=== PATIENT | female | born 1965 | race Caucasian/White ===

== ENCOUNTER 2022-06-29 07:26 | Emergency (ER) | payer OTHER ==
[~2022-06-29] VITALS: Ht 165.1 cm; Wt 105.0 kg
[2022-06-29 07:34] VITALS: BP 159/73
[2022-06-29 07:45] VITALS: BP 138/71
[2022-06-29] MEDS ORDERED: LISINOPRIL2.5 MG PO (07:47)
[2022-06-29] MEDS ORDERED: [UNRECOGNIZED DRUG - OTHER] (07:47)
[2022-06-29] MEDS ORDERED: LANTUS100 UNIT (07:47)
[2022-06-29] MEDS ORDERED: HUMALOG100 UNIT (07:48)
[2022-06-29 08:00] VITALS: BP 179/89
[2022-06-29] MEDS ORDERED: PREDNISONE50 MG PO ×2 (08:07→10:53)
[2022-06-29] MEDS ORDERED: CEPHALEXIN500 M1 PO ×2 (08:07→10:53)
[2022-06-29] MEDS ORDERED: ALL DAY ALLG10 MG PO ×2 (08:07→10:53)
[2022-06-29] MEDS ORDERED: DIFLUCAN150 MG PO ×2 (08:08→10:53)
[2022-06-29 08:15] VITALS: BP 151/76
[2022-06-29 08:26] VITALS: BP 179/89
== END 2022-06-29 09:03 | disposition home or self-care (01) | DRG 916 ==
LOC: ED 07:26
DX: T78.40XA Allergy, unspecified, initial encounter (principal)